=== PATIENT | female | born 1975 | race Caucasian/White ===

== ENCOUNTER 2016-10-13 19:35 | Observation (INO) | payer BC ==
[2016-10-13] MEDS ORDERED: NS 1,000 ML IV ONE (20:02)
[2016-10-13] MEDS ORDERED: ONDANSETRON 4 MG/2 ML VIAL IVP ONE (20:02)
--- NOTE | 2016-10-13 20:04 | EDPHY ---
H & P Time Seen by Provider: 10/13/16 19:40 HPI/ROS: 40-year-old female presents complaining of epigastric, substernal upper abdominal pain that radiates to her back approximately 2-3 days duration associated with nausea no vomiting. No fevers or chills. Worsened with eating. Patient has had similar pain over the last several years often relieved with using heating pad. Review of systems As per HPI General no fever no chills no weakness HEENT no eye pain no eye discharge. No eye redness, no sore throat Respiratory no cough, no shortness of breath Cardiac no chest pain, no peripheral edema GI positive abdominal pain positive nausea no diarrhea, no constipation, no nausea, no vomiting no flank pain, no hematuria, no dysuria Musculoskeletal no myalgias, no joint pain Heme no easy bruising, no easy bleeding Endo no polyuria, no polydipsia Skin no rashes, no pruritus Neuro no syncope, no dizziness, no headaches Psych is no suicidal ideation, no homicidal ideation Past Medical/Surgical History: Noncontributory No prior abdominal surgery Social History: Drinks alcohol socially, relatively frequently often after sports activities Smoking Status: Current every day smoker Physical Exam: 40-year-old female alert and oriented no acute distress nontoxic appearance afebrile HEENT atraumatic normocephalic, extraocular muscles intact, anicteric Oropharynx negative for erythema negative exudate, tolerating her own secretions Neck supple no meningismus Lungs clear to auscultation bilaterally Heart regular rate and rhythm without murmur rub or gallop Abdomen nondistended normoactive bowel sounds soft, tenderness palpation epigastric region, no guarding no rebound no pulsatile mass Back no CVA tenderness, no step-offs, no spinal tenderness Extremities no cyanosis clubbing or edema Neuro alert and oriented, no focal deficits Constitutional: Initial Vital Signs Temperature (C) 37.1 C 10/13/16 19:45 Heart Rate 65 10/13/16 19:45 Respiratory Rate 16 10/13/16 19:45 Blood Pressure 133/87 H 10/13/16 19:45 O2 Sat (%) 96 10/13/16 19:45 O2 Delivery Mode Room Air Allergies/Adverse Reactions: No Known Allergies Allergy (Unverified 10/13/16 19:45) Home Medications: Medication Instructions Recorded NO HOME MEDS 07/21/10 Medical Decision Making - Diagnostics Imaging Results: Imaging Impressions Abdomen Ultrasound 10/13/16 20:03 Impression: 1. Cholelithiasis, gallbladder wall thickening, and sonographic Zarate sign ( suggest of acute cholecystitis). 2. No biliary dilation or evidence of choledocholithiasis. 3. No free fluid. Findings discussed with Emergency Department physician, Edwige Barrett M.D., on October 13, 2016 at 2143. ED Course/Re-evaluation: Patient seen and evaluated for epigastric, substernal upper abdominal pain radiating to her back of several days duration. Differential diagnosis considered Cholecystitis, cholelithiasis, pancreatitis, peptic ulcer disease, myocardial infarction, gastritis IV established, labs drawn Patient given IV normal saline 1 L, ondansetron 4 mg IV push for nausea, and morphine 4 mg IV push for pain EKG normal sinus rhythm CBC within normal limits, except white blood cell count 10.9 Basic metabolic panel within normal limits Ultrasound right upper quadrant Thickened gallbladder wall, gallstones and sludge within the gallbladder, large stone wedged in the neck of the gallbladder Common bile duct normal Impression Acute cholecystitis Plan Transfer to [facility] for direct admission to Dr. Ace Ceftriaxone 1 g IV piggyback Flagyl 500 mg IV piggyback - Data Points Laboratory Results: Laboratory Results 10/13/16 19:57 10/13/16 19:57 10/13/16 10/13/16 10/13/16 19:57 19:57 19:56 WBC 10.77 10^3/uL H 10^3/uL (3.80-9.50) RBC 5.15 10^6/uL 10^6/uL (4.18-5.33) Hgb 16.8 g/dL H g/dL (12.6-16.3) POC Hgb 17.3 gm/dL H gm/dL (12.6-16.3) Hct 48.0 % H % (38.0-47.0) POC Hct 51 % H % (38-47) MCV 93.2 fL fL (81.5-99.8) MCH 32.6 pg pg (27.9-34.1) MCHC 35.0 g/dL g/dL (32.4-36.7) RDW 12.9 % % (11.5-15.2) Plt Count 229 10^3/uL 10^3/uL (150-400) MPV 10.1 fL fL (8.7-11.7) Neut % (Auto) 59.4 % % (39.3-74.2) Lymph % (Auto) 30.4 % % (15.0-45.0) [place] % (Auto) 7.0 % % (4.5-13.0) Eos % (Auto) 2.3 % % (0.6-7.6) Baso % (Auto) 0.5 % % (0.3-1.7) Nucleat RBC Rel Count 0.0 % % (0.0-0.2) Absolute Neuts (auto) 6.41 10^3/uL 10^3/uL (1.70-6.50) Absolute Lymphs (auto) 3.27 10^3/uL H 10^3/uL (1.00-3.00) Absolute Monos (auto) 0.75 10^3/uL 10^3/uL (0.30-0.80) Absolute Eos (auto) 0.25 10^3/uL 10^3/uL (0.03-0.40) Absolute Basos (auto) 0.05 10^3/uL 10^3/uL (0.02-0.10) Absolute Nucleated RBC 0.00 10^3/uL 10^3/uL (0-0.01) Immature Gran % 0.4 % % (0.0-1.1) Immature Gran # 0.04 10^3/uL 10^3/uL (0.00-0.10) POC Sodium 142 mEq/L mEq/L (134-144) Sodium 142 mEq/L mEq/L (134-144) POC Potassium 4.2 mEq/L mEq/L (3.3-5.0) Potassium 4.5 mEq/L mEq/L (3.5-5.2) POC Chloride 101 mEq/L mEq/L (97-110) Chloride 107 mEq/L mEq/L (97-110) Carbon Dioxide 21 mEq/l L mEq/l (22-31) Anion Gap 14 mEq/L mEq/L (8-16) POC BUN 9 mg/dL mg/dL (7-23) BUN 10 mg/dL mg/dL (7-23) Creatinine 0.8 mg/dL mg/dL (0.6-1.0) POC Creatinine 0.8 mg/dL mg/dL (0.6-1.0) Estimated GFR > 60 Glucose 80 mg/dL mg/dL (70-100) POC Glucose 82 mg/dL mg/dL (70-100) Calcium 9.5 mg/dL mg/dL (8.5-10.4) Total Bilirubin 0.8 mg/dL mg/dL (0.1-1.4) AST 31 IU/L IU/L (14-46) ALT 51 IU/L IU/L (9-52) Alkaline Phosphatase 48 IU/L IU/L (38-126) Total Protein 7.7 g/dL g/dL (6.3-8.2) Albumin 4.8 g/dL g/dL (3.5-5.0) Lipase 239.0 IU/L IU/L (23-300) Medications Given: Discontinued Medications Sodium Chloride (Ns) 1,000 mls @ 0 mls/hr IV ONCE ONE PRN Reason: Wide Open Stop: 10/13/16 20:03 Last Admin: 10/13/16 20:26 Dose: 1,000 mls Ketorolac Tromethamine (Toradol) 30 mg IVP EDNOW ONE Stop: 10/13/16 22:12 Last Admin: 10/13/16 22:24 Dose: 30 mg Morphine Sulfate (Morphine) 4 mg IVP EDNOW ONE Stop: 10/13/16 20:03 Last Admin: 10/13/16 21:17 Dose: 2 mg Ondansetron HCl (Zofran) 4 mg IVP EDNOW ONE Stop: 10/13/16 20:03 Last Admin: 10/13/16 20:26 Dose: 4 mg Point of Care Test Results: 10/13/16 19:56 POC Sodium 142 POC Potassium 4.2 POC Chloride 101 POC BUN 9 POC Creatinine 0.8 POC Glucose 82 Departure - Departure Disposition: [facility] Inpatient Acute Clinical Impression: Acute cholecystitis Condition: Good
[2016-10-13 20:11] LABS: % IMMATURE GRANULYOCYTES 0.4 % (0.0-1.1); ABSOLUTE IMMATURE GRANULOCYTES 0.04 10^3/uL (0.00-0.10); ADD DIFF? NO; ADD MORPH? NO; ADD SCAN? NO; ATYPICAL LYMPHOCYTE FLAG 10 (0-99); FRAGMENT RBC FLAG 0 (0-99); HEMOGLOBIN 16.8 g/dL (12.6-16.3); LEFT SHIFT FLG 0 (0-99); LIPEMIA HEMOLYSIS FLAG 90 (0-99); MEAN CELL HEMOGLOBIN 32.6 pg (27.9-34.1); MEAN CELL VOLUME 93.2 fL (81.5-99.8); MEAN PLATELET VOLUME 10.1 fL (8.7-11.7); PLATELET CLUMPS FLAG 0 (0-99); PLATELET COUNT 229 10^3/uL (150-400); RED BLOOD CELL COUNT 5.15 10^6/uL (4.18-5.33); RED CELL DISTRIBUTION WIDTH 12.9 % (11.5-15.2)
--- NOTE | 2016-10-13 20:13 | CPEKG ---
Heart Rate: 62 RR Interval: 968 P-R Interval: 176 QRSD Interval: 82 QT Interval: 408 QTC Interval: 415 P [place]: 36 QRS [place]: 13 T Wave [place]: 20 EKG Severity - OTHERWISE NORMAL ECG - EKG Impression: SINUS ARRHYTHMIA, RATE 49-71 Electronically Signed By: Chris De Leon 16-Oct-2016 09:11:01
[2016-10-13 21:43] LABS: SODIUM 142 mEq/L (134-144)
[2016-10-13 21:45] LABS: ALANINE AMINOTRANSFERASE 51 IU/L (9-52); ALBUMIN 4.8 g/dL (3.5-5.0); ALKALINE PHOSPHATASE 48 IU/L (38-126); ANION GAP 14 mEq/L (8-16); ASPARTATE AMINOTRANSFERASE 31 IU/L (14-46); BILIRUBIN,TOTAL 0.8 mg/dL (0.1-1.4); CALCIUM 9.5 mg/dL (8.5-10.4); CARBON DIOXIDE 21 mEq/l (22-31); CHLORIDE 107 mEq/L (97-110); CREATININE 0.8 mg/dL (0.6-1.0); GLOMERULAR FILTRATION RATE > 60; GLUCOSE 80 mg/dL (70-100); POTASSIUM 4.5 mEq/L (3.5-5.2); TOTAL PROTEIN 7.7 g/dL (6.3-8.2)
[2016-10-13] MEDS ORDERED: KETOROLAC 30 MG/1 ML SDV IVP ONE (22:11)
[2016-10-13] MEDS ORDERED: CEFTRIAXONE 1 GM/DEXTROSE/50 ML BAG IV ONE (22:12)
[2016-10-13] MEDS ORDERED: KETOROLAC 30 MG/1 ML SDV ONE (22:22)
--- NOTE | 2016-10-14 06:37 | PDGENHP ---
History and Physical - Chief Complaint right upper quadrant abdominal pain - History of Present Illness Kiana is a 40-year-old patient who presents to the hospital from [facility] with a history of right upper quadrant pain and ultrasound positive findings consistent with acute cholecystitis. The patient has mildly elevated white blood cell count was given antibiotics at the outpatient facility and transferred here for definitive treatment. She has had 3 days of abdominal pain starting on Thursday while on a hockey tournament in [place]. Her diet consisted primarily of pizza and hot dogs along with beer. Her pain is continued to escalate since coming back to [place] and she sought medical attention when it became completely intractable. She has never had previous symptoms. Her Pane is a 78/10. Toradol helped greatly.ew History Information - Allergies/Home Medication List Allergies/Adverse Reactions: No Known Allergies Allergy (Unverified 10/13/16 19:45) Home Medications: NO HOME MEDS 07/21/10 [Last Taken Unknown] I have personally reviewed and updated: family history, medical history, social history, surgical history - Past Medical History no pertinent PMH - Surgical History Reports: no pertinent surgical hx - Family History Positive for: non-pertinent - Social History Smoking Status: Current every day smoker Alcohol Use: Occasionally Drug Use: None Review of Systems ROS: 10pt was reviewed & negative except for what was stated in HPI & below Gastrointestinal: Reports: abdominal pain. Denies: vomitting, black stools, blood streaked stools, diarrhea, nausea Physical Exam Temp Pulse Resp BP Pulse Ox 37.0 C 65 14 102/50 L 95 10/14/16 04:10 10/14/16 04:10 10/14/16 04:10 10/14/16 04:10 10/14/16 04:10 O2 (L/minute) 0 Constitutional: uncomfortable Eyes: anicteric sclera, EOMI Ears, Nose, Mouth, Throat: moist mucous membranes, hearing normal, No poor dentition Cardiovascular: regular rate and rhythym, No JVD Peripheral Pulses: 2+: carotid (R), carotid (L), femoral (R), femoral (L), dorsalis-pedis (R), dorsalis-pedis (L) Respiratory: no respiratory distress, no rales or rhonchi, clear to auscultation Gastrointestinal: tenderness ( right upper quadrant send), No zarate's sign, No hepatosplenomegally, No guarding Skin: warm, normal color, No erythema, No rash ( ) Musculoskeletal: full muscle strength, normal joint ROM Neurologic: AAOx3, sensation intact bilaterally, CN II-XII Intact Psychiatric: interacting appropriately Lymph, Heme, Immunologic: no cervical LAD ( car and ), no supraclavicular LAD ( then), No ecchymoses Lab Data & Imaging Review 10/13/16 19:57 10/13/16 19:57 WBC 10.77 10^3/uL (3.80-9.50) H 10/13/16 19:57 RBC 5.15 10^6/uL (4.18-5.33) 10/13/16 19:57 Hgb 16.8 g/dL (12.6-16.3) H 10/13/16 19:57 POC Hgb 17.3 gm/dL (12.6-16.3) H 10/13/16 19:56 Hct 48.0 % (38.0-47.0) H 10/13/16 19:57 POC Hct 51 % (38-47) H 10/13/16 19:56 MCV 93.2 fL (81.5-99.8) 10/13/16 19:57 MCH 32.6 pg (27.9-34.1) 10/13/16 19:57 MCHC 35.0 g/dL (32.4-36.7) 10/13/16 19:57 RDW 12.9 % (11.5-15.2) 10/13/16 19:57 Plt Count 229 10^3/uL (150-400) 10/13/16 19:57 MPV 10.1 fL (8.7-11.7) 10/13/16 19:57 Neut % (Auto) 59.4 % (39.3-74.2) 10/13/16 19:57 Lymph % (Auto) 30.4 % (15.0-45.0) 10/13/16 19:57 [place] % (Auto) 7.0 % (4.5-13.0) 10/13/16 19:57 Eos % (Auto) 2.3 % (0.6-7.6) 10/13/16 19:57 Baso % (Auto) 0.5 % (0.3-1.7) 10/13/16 19:57 Nucleat RBC Rel Count 0.0 % (0.0-0.2) 10/13/16 19:57 Absolute Neuts (auto) 6.41 10^3/uL (1.70-6.50) 10/13/16 19:57 Absolute Lymphs (auto) 3.27 10^3/uL (1.00-3.00) H 10/13/16 19:57 Absolute Monos (auto) 0.75 10^3/uL (0.30-0.80) 10/13/16 19:57 Absolute Eos (auto) 0.25 10^3/uL (0.03-0.40) 10/13/16 19:57 Absolute Basos (auto) 0.05 10^3/uL (0.02-0.10) 10/13/16 19:57 Absolute Nucleated RBC 0.00 10^3/uL (0-0.01) 10/13/16 19:57 Immature Gran % 0.4 % (0.0-1.1) 10/13/16 19:57 Immature Gran # 0.04 10^3/uL (0.00-0.10) 10/13/16 19:57 POC Sodium 142 mEq/L (134-144) 10/13/16 19:56 Sodium 142 mEq/L (134-144) 10/13/16 19:57 POC Potassium 4.2 mEq/L (3.3-5.0) 10/13/16 19:56 Potassium 4.5 mEq/L (3.5-5.2) 10/13/16 19:57 POC Chloride 101 mEq/L (97-110) 10/13/16 19:56 Chloride 107 mEq/L (97-110) 10/13/16 19:57 Carbon Dioxide 21 mEq/l (22-31) L 10/13/16 19:57 Anion Gap 14 mEq/L (8-16) 10/13/16 19:57 POC BUN 9 mg/dL (7-23) 10/13/16 19:56 BUN 10 mg/dL (7-23) 10/13/16 19:57 Creatinine 0.8 mg/dL (0.6-1.0) 10/13/16 19:57 POC Creatinine 0.8 mg/dL (0.6-1.0) 10/13/16 19:56 Estimated GFR > 60 10/13/16 19:57 Glucose 80 mg/dL (70-100) 10/13/16 19:57 POC Glucose 82 mg/dL (70-100) 10/13/16 19:56 Calcium 9.5 mg/dL (8.5-10.4) 10/13/16 19:57 Total Bilirubin 0.8 mg/dL (0.1-1.4) 10/13/16 19:57 AST 31 IU/L (14-46) 10/13/16 19:57 ALT 51 IU/L (9-52) 10/13/16 19:57 Alkaline Phosphatase 48 IU/L (38-126) 10/13/16 19:57 Total Protein 7.7 g/dL (6.3-8.2) 10/13/16 19:57 Albumin 4.8 g/dL (3.5-5.0) 10/13/16 19:57 Lipase 239.0 IU/L (23-300) 10/13/16 19:57 Imaging Review: Imaging Impressions Abdomen Ultrasound 10/13/16 20:03 Impression: 1. Cholelithiasis, gallbladder wall thickening, and sonographic Zarate sign ( suggest of acute cholecystitis). 2. No biliary dilation or evidence of choledocholithiasis. 3. No free fluid. Findings discussed with Emergency Department physician, Edwige Barrett M.D., on October 13, 2016 at 2143. Assessment & Plan Assessment: Acute cholecystitis (Acute) with stones no signs of biliary obstruction. No previous episodes. History of smoking but no other comorbid issues. Plan: Laparoscopic cholecystectomy. The risks benefits alternatives surgery open clearly outlined to the patient. Verbal confirmation of understanding prior to signing written consent. All questions were addressed. The risks include but are not limited to bleeding, infection, injury to surrounding structures, and need for additional procedures such as ERCP.
[2016-10-14] MEDS ORDERED: ONDANSETRON 4 MG/2 ML VIAL IVP ONE (06:42)
[2016-10-14] MEDS ORDERED: BUPIVACAINE 0.5% 30 ML SDV ONE (06:50)
[2016-10-14] MEDS ORDERED: LIDOCAINE 1% 300 MG/30 ML SDV ONE (06:50)
[2016-10-14] MEDS ORDERED: LR 1,000 ML IV SCH (07:00)
--- NOTE | 2016-10-14 07:01 | PDANEPAE ---
ANE History of Present Illness acute cholecystitis ANE Past Medical History - Cardiovascular History Hx Hypertension: No Hx Arrhythmias: No Hx Chest Pain: No Hx Coronary Artery / Peripheral Vascular Disease: No Hx CHF / Valvular Disease: No Hx Palpitations: No - Pulmonary History Hx COPD: No Hx Asthma/Reactive Airway Disease: No Hx Recent Upper Respiratory Infection: No Hx Oxygen in Use at Home: No Hx Sleep Apnea: No Sleep Apnea Screening Result - Last Documented: Negative - Endocrine History Hx Diabetes: No - Chronic Pain History Chronic Pain: No ANE Review of Systems Review of systems is: negative - Exercise capacity Exercise capacity: >=4 METS ANE Patient History - Allergies Allergies/Adverse Reactions: No Known Allergies Allergy (Unverified 10/13/16 19:45) - Home Medications Home Medications: NO HOME MEDS 07/21/10 [Last Taken Unknown] - NPO status NPO Since - Liquids (Date): 10/14/16 NPO Since - Liquids (Time): 00:00 NPO Since - Solids (Date): 10/13/16 NPO Since - Solids (Time): 17:00 - Anes Hx Anes Hx: no prior problems - Smoking Hx Smoking Status: Current every day smoker - Alcohol Use Alcohol Use: Occasionally ANE Labs/Vital Signs - Labs Result Diagrams: 10/13/16 19:57 10/13/16 19:57 - Vital Signs Blood Pressure: 108/46 Heart Rate: 62 Respiratory Rate: 14 O2 Sat (%): 95 Height: 161.29 cm Weight: 79.5 kg ANE Physical Exam - Airway Neck exam: FROM Mallampati Score: Class 2 Mouth exam: normal dental/mouth exam - Pulmonary Pulmonary: no respiratory distress - Cardiovascular Cardiovascular: regular rate and rhythym - ASA Status ASA Status: II ANE Anesthesia Plan Anesthesia Plan: general endotracheal anesthesia
[2016-10-14] MEDS ORDERED: fentaNYL 100 MCG/2 ML INJ ONE ×2 (07:04→08:23)
[2016-10-14] MEDS ORDERED: PROPOFOL 200 MG/20 ML VIAL ONE (07:05)
[2016-10-14] MEDS ORDERED: LR 1,000 ML IV ONE (07:11)
[2016-10-14] MEDS ORDERED: MIDAZOLAM 2 MG/2 ML VIAL IVP ONE (07:23)
[2016-10-14] MEDS ORDERED: MIDAZOLAM 2 MG/2 ML VIAL ONE (07:23)
[2016-10-14] MEDS ORDERED: ROCURONIUM 100 MG/10 ML VIAL ONE (08:38)
[2016-10-14] MEDS ORDERED: LIDOCAINE 2% 100 MG/5 ML SYR ONE (08:38)
[2016-10-14] MEDS ORDERED: SUGAMMADEX SODIUM 200 MG/2 ML VIAL IVP ONE (08:38)
[2016-10-14] MEDS ORDERED: KETOROLAC 30 MG/1 ML SDV ONE (08:38)
[2016-10-14] MEDS ORDERED: DEXAMETHASONE 4 MG/ML VIAL ONE (08:38)
[2016-10-14] MEDS ORDERED: ONDANSETRON 4 MG/2 ML VIAL ONE (08:38)
[2016-10-14] MEDS ORDERED: OXYCODONE/APAP 5/325 TAB PO PRN (09:01)
[2016-10-14] MEDS ORDERED: fentaNYL 100 MCG/2 ML INJ IVP PRN (09:01)
[2016-10-14] MEDS ORDERED: HYDROmorphONE/DILAUDID 1 MG/ML SYR IVP PRN (09:01)
[2016-10-14] MEDS ORDERED: NALOXONE HCL 0.4 MG/ML INJ IVP PRN (09:01)
[2016-10-14] MEDS ORDERED: ONDANSETRON 4 MG/2 ML VIAL IVP PRN ×2 (09:01→09:26)
--- NOTE | 2016-10-14 09:01 | POSTANESTH ---
Post Anesthetic Evaluation Cardiovascular Status: Normal, Stable Respiratory Status: Normal, Stable Level of Consciousness/Mental Status: Can Participate in Eval Pain Control: Adequate, Prn Tx Ordered Nausea/Vomiting Control: Adequate, Prn Tx Ordered Complications Possibly Related to Anesthesia: None Noted
--- NOTE | 2016-10-14 09:29 | POSTOPPROG ---
Post Op Note Date of Operation: 10/14/16 Surgeon: Yoshi Ace Anesthesiologist: Antonio Palacios Anesthesia: GET(General Endotracheal) Pre-op Diagnosis: acute cholecystitis Post-op Diagnosis: same Procedure: lap sergio Findings: inflammed galbladder Inf/Abcess present in the surg proc area at time of surgery?: Yes Depth: Organ Space EBL: Minimal Specimen(s): gallbladder to path
[2016-10-14 11:36] VITALS: RESP 16
[2016-10-14] MEDS ORDERED: KETOROLAC 15 MG/1 ML SDV IVP SCH (12:00)
[2016-10-14 13:51] VITALS: BP 104/54
[2016-10-14 15:36] VITALS: PULSE 63; TEMP 97.7; O2SAT 94
== END 2016-10-14 18:28 | disposition home or self-care (01) ==
LOC: CED 19:35 → INTOOBSV 22:14 → CEDHOLD 22:14 → F3E 23:28
PROVIDERS: ADMIT Surgery; ATTEND Surgery
PROC: 0FT44ZZ Resection of Gallbladder, Percutaneous Endoscopic Approach (ICD-10-PCS; principal; 2016-10-14 07:15)
DX: K80.12 Calculus of gallbladder with acute and chronic cholecystitis without obstruction (principal); F17.200 Nicotine dependence, unspecified, uncomplicated
CPT/HCPCS: 47562; 76705; 93005; G0378; 80053-PO; 82947-QW; 83690-PO; 85025-PO; J0696; J1100; J1170; J1885; J2001; J2250; J2405; J2704; J3010